=== PATIENT | male | born 1980 | race Caucasian/White ===

== ENCOUNTER 2023-09-17 14:24 | Emergency (ER) | payer BC, OTHER ==
--- NOTE | 2023-09-17 15:01 | ED ---
Extremity Problem HPI - General Source: RN notes reviewed, old records reviewed <Kenny Petit - Last Filed: 09/17/23 15:00> - General Source: RN notes reviewed <Steven Pereira - Last Filed: 09/17/23 16:55> - General Stated complaint: Leg Injuries - History of Present Illness Initial comments: 43 male to the ED co leg pain after 2 weeks of leg pain after crush injury (Kenny Petit) Patient reports 2 weeks ago a large concrete block fell on him and crushed him. States he was able to straighten himself out and was not stuck for prolonged period of time. Reports since then has had some discomfort of his right lower leg however denies pain anywhere else. Reports some minimal swelling and some bruising to this and patient reports she is concerned since at this time he reports she would have expected swelling to start decreasing. For this, he went to an urgent care who advised him to present to the ED to rule out a blood clot as he recently had a 3-hour flight to [place]. Denies history of DVT or PE in the past. Denies family history of bleeding or clotting disorder or personal history of bleeding or clotting disorder. Patient reports that he is a smoker. No chest pain or shortness of breath. No other complaints at this time. (Steven Pereira) - Related Data Allergies Allergy/AdvReac Type Severity Reaction Status Date / Time No Known Allergies Allergy Verified 09/17/23 15:07 Review of Systems ROS Other: All systems not noted in ROS Statement are negative. <Kenny Petit - Last Filed: 09/17/23 15:00> ROS Other: All systems not noted in ROS Statement are negative. <Steven Pereira - Last Filed: 09/17/23 16:55> ROS Statement: Those systems with pertinent positive or pertinent negative responses have been documented in the HPI. General Exam General appearance: alert, in no apparent distress Head exam: Present: atraumatic, normocephalic, normal inspection Eye exam: Present: normal appearance, PERRL, EOMI. Absent: scleral icterus, conjunctival injection, periorbital swelling ENT exam: Present: normal exam, mucous membranes moist Neck exam: Present: normal inspection. Absent: tenderness, meningismus, lymphadenopathy Respiratory exam: Present: normal lung sounds bilaterally. Absent: respiratory distress, wheezes, rales, rhonchi, stridor Cardiovascular Exam: Present: regular rate, normal rhythm, normal heart sounds. Absent: systolic murmur, diastolic murmur, rubs, gallop, clicks GI/Abdominal exam: Present: soft, normal bowel sounds. Absent: distended, tende rness, guarding, rebound, rigid Extremities exam: Present: normal inspection, full ROM, normal capillary refill. Absent: tenderness, pedal edema, joint swelling, calf tenderness Back exam: Present: normal inspection Neurological exam: Present: alert, oriented X3, CN II-XII intact Psychiatric exam: Present: normal affect, normal mood Skin exam: Present: warm, dry, intact, normal color. Absent: rash <Kenny Petit - Last Filed: 09/17/23 15:00> General appearance: alert, in no apparent distress Head exam: Present: atraumatic, normocephalic Eye exam: Present: normal appearance Neck exam: Present: normal inspection Respiratory exam: Present: normal lung sounds bilaterally Cardiovascular Exam: Present: regular rate GI/Abdominal exam: Present: soft Extremities exam: Present: normal inspection, other (Negative Homans' sign. DP/PT pulses palpable bilaterally. Ecchymosis of the right medial foot. No significant tenderness to palpation of the right lower extremity or foot. Ambulates without difficulty.) Back exam: Present: normal inspection Neurological exam: Present: alert, oriented X3 Skin exam: Present: warm, dry <Steven Pereira - Last Filed: 09/17/23 16:55> Course <Kenny Petit - Last Filed: 09/17/23 15:00> Vital Signs 09/17/23 15:02 Temperature 97.8 F Pulse Rate 86 Respiratory 18 Rate Blood Pressure 127/81 O2 Sat by Pulse 99 Oximetry - Reevaluation(s) Reevaluation #1: 09/17/23 15:01 QN completed by myself Dr Petit (Kenny Petit) Medical Decision Making <Steven Pereira - Last Filed: 09/17/23 16:55> - Medical Decision Making Was pt. sent in by a medical professional or institution (, PA, A/C TECHNICIAN, urgent care, hospital, or intermediate...) When possible be specific @ -Urgent care Did you speak to anyone other than the patient for history (EMS, parent, family, police, friend...)? What history was obtained from this source @ -No Did you review nursing and triage notes (agree or disagree)? Why? @ -I reviewed and agree with nursing and triage notes Were old charts reviewed (outside hosp., previous admission, EMS record, old EKG, old radiological studies, urgent care reports/EKG's, intermediate records)? Report findings @ -No old charts were reviewed Differential Diagnosis (chest pain, altered mental status, abdominal pain women, abdominal pain men, vaginal bleeding, weakness, fever, dyspnea, syncope, headache, dizziness, GI bleed, back pain, seizure, CVA, palpatations, mental health, musculoskeletal)? @ -Differential Musculoskeletal Muscular strain, contusion, ligament sprain, fracture, arthritis, septic arthritis, bursitis, cellulitis, muscle spasm, nerve compression, DVT, arterial occlusion, herpes zoster, electrolyte abnormality, tumor.... This is not meant to be in all inclusive list EKG interpreted by me (3pts min.). @ -None X-rays interpreted by me (1pt min.). @ -X-ray of The tib-fib interpreted me which reveals no evidence of acute finding. CT interpreted by me (1pt min.). @ -None done U/S interpreted by me (1pt. min.). @ -Ultrasound interpreted by me which reveals no evidence of acute finding. What testing was considered but not performed or refused? (CT, X-rays, U/S, labs)? Why? @ -None What meds were considered but not given or refused? Why? @ -None Did you discuss the management of the patient with other professionals (professionals i.e. , PA, A/C TECHNICIAN, lab, RT, psych nurse, social worker palliative care, cardiology consultants, teacher, landcare officer, behavioral health case manager)? Give summary @ -No Was smoking cessation discussed for >3mins.? @ -No Was critical care preformed (if so, how long)? @ -No Were there social determinants of health that impacted care today? How? (Homelessness, low income, unemployed, alcoholism, drug addiction, transportation, low edu. Level, literacy, decrease access to med. care, assisted, rehab)? @ -No Was there de-escalation of care discussed even if they declined (Discuss DNR or withdrawal of care, Hospice)? DNR status @ -No What co-morbidities impacted this encounter? (DM, HTN, Smoking, COPD, CAD, Cancer, CVA, ARF, Chemo, Hep., AIDS, mental health diagnosis, sleep apnea, morbid obesity)? @ -None Was patient admitted / discharged? Hospital course, mention meds given and route, prescriptions, significant lab abnormalities, going to OR and other pertinent info. @ -Discharge 43-year-old male presenting to the ED with complaints of right lower extremity discomfort and swelling. Reports that he had a concrete block fall atop his whole body 2 weeks ago. Reports he was able to show me out immediately and was not underneath this block for a prolonged period of time. Reports since then he has had discomfort of his right lower extremity with bruising of his foot and minimal swelling. Reports that he presented to an urgent care as he expected pain and swelling to improve by this time however was instructed to present here to rule out blood clot. Ultrasound performed here reveals no evidence of DVT. X-ray reveals no evidence of acute finding. On examination strength and sensation equal and intact. DP/PT pulses palpable. Minimal swelling of the right lower extremity with ecchymosis of the medial right foot. No significant pain on palpation. Negative Homans' sign. Ambulates without significant difficulty. Discharged home in stable condition. Advise follow-up with PCP. Discussed return precautions patient verbalized agreement. Undiagnosed new problem with uncertain prognosis? @ -No Drug Therapy requiring intensive monitoring for toxicity (Heparin, Nitro, Insulin, Cardizem)? @ -No Were any procedures done? @ -No Diagnosis/symptom? @ -Right leg pain Acute, or Chronic, or Acute on Chronic? @ -Acute Uncomplicated (without systemic symptoms) or Complicated (systemic symptoms)? @ -Uncomplicated Side effects of treatment? @ -No Exacerbation, Progression, or Severe Exacerbation? @ -No Poses a threat to life or bodily function? How? (Chest pain, USA, DC, pneumonia, PE, COPD, DKA, ARF, appy, cholecystitis, CVA, Diverticulitis, Homicidal, Suicidal, threat to staff... and all critical care pts) @ -No (Steven Pereira) Disposition <Kenny Petit Last Filed: 09/17/23 15:00> Is patient prescribed a controlled substance at d/c from ED?: No Time of Disposition: 16:55 <Steven Pereira - Last Filed: 09/17/23 16:55> Clinical Impression: Right leg pain Disposition: HOME SELF-CARE Condition: Good Instructions (If sedation given, give patient instructions): Leg Pain (ED) Additional Instructions: Please return to the Emergency Department if symptoms worsen or any other concerns. Please follow-up with your primary care provider. Referrals: None,Stated [Primary Care Provider] - 1-2 days
[2023-09-17 15:19] VITALS: RESP 18; TEMP 97.8
--- NOTE | 2023-09-17 16:07 | US ---
EXAMINATION TYPE: US venous doppler duplex LE RT DATE OF EXAM: 09/17/2023 3:45 PM COMPARISON: NONE CLINICAL INDICATION: Male, 43 years old with history of pain; pain right leg SIDE PERFORMED: Right TECHNIQUE: The lower extremity deep venous system is examined utilizing real time linear array sonog rajendra with graded compression, doppler sonography and color-flow sonography. VESSELS IMAGED: Common Femoral Vein Deep Femoral Vein Greater Saphenous Vein * Femoral Vein Popliteal Vein Small Saphenous Vein * Proximal Calf Veins (* superficial vessels) Right Leg: Negative for DVT IMPRESSION: 1. Right lower extremity ultrasound negative for deep venous thrombosis.
--- NOTE | 2023-09-17 16:36 | XR ---
EXAMINATION TYPE: XR tibia fibula RT DATE OF EXAM: 09/17/2023 COMPARISON: None HISTORY: Pain, prior crush injury TECHNIQUE: 2 view right tibia and fibula FINDINGS: No acute fracture or dislocation is evident. The soft tissues appear normal. No cortical er osions are evident. Small Achilles tendon calcaneal heel spur is present. Consider compartment syndrome which cannot be radiographically evaluated. IMPRESSION: 1. No acute osseous abnormality right tibia and fibula.
[2023-09-17 17:19] VITALS: BP 126/81; PULSE 63
== END 2023-09-17 17:09 | disposition home or self-care (01) ==
LOC: EC 14:24
DX: S90.31XA Contusion of right foot, initial encounter (principal); W20.8XXA Other cause of strike by thrown, projected or falling object, initial encounter
CPT/HCPCS: 99284